=== PATIENT | female | born 1955 | race Caucasian/White ===

== ENCOUNTER 2018-05-18 19:08 | Emergency (ER) | payer MEDICARE, MEDICAID ==
[~2018-05-18] VITALS: Ht 157.5 cm; Wt 118.7 kg
[2018-05-18] MEDS ORDERED: GABA600T7 PO (19:34)
[2018-05-18] MEDS ORDERED: FURO-93 PO (19:34)
[2018-05-18] MEDS ORDERED: LOSA100T14 PO (19:34)
[2018-05-18] MEDS ORDERED: PANT40TA5 PO (19:34)
[2018-05-18] MEDS ORDERED: AMIT150T PO (19:34)
[2018-05-18] MEDS ORDERED: METO25TA91 PO (19:34)
[2018-05-18] MEDS ORDERED: ATOR40TA PO (19:34)
[2018-05-18] MEDS ORDERED: LEVO150T5 PO (19:34)
[2018-05-18] MEDS ORDERED: SERT50TA28 PO (19:34)
--- NOTE | 2018-05-18 19:37 | NUR ---
PT IN ROOM. ALL ASSESSMENT AND MED REC COMPLETED BY JOHN ESCALANTE.
[2018-05-18] MEDS ORDERED: ONDANSETRON 2MG/ML, 2ML IVPush ONE (20:00)
[2018-05-18] MEDS ORDERED: MORPHINE SULFATE 4 MG/ML, 1ML IVPush PRN (20:00)
[2018-05-18] MEDS ORDERED: ONDANSETRON 2MG/ML, 2ML ONE (20:22)
[2018-05-18] MEDS ORDERED: MORPHINE SULFATE 4 MG/ML, 1ML ONE (20:23)
[2018-05-18 20:24] LABS: BASOPHILS # (AUTO) 0.03 x10^3/uL (0-0.1); BASOPHILS % (AUTO) 0 % (0-1); EOSINOPHILS # (AUTO) 0.41 x10^3/uL (0-0.4); EOSINOPHILS % (AUTO) 4 % (1-7); LYMPHOCYTES # (AUTO) 1.61 x10^3/uL (1-3.4); LYMPHOCYTES % (AUTO) 15 % (22-44); MD NO; MEAN CORPUSCULAR HEMOGLOBIN 27.1 pg (27.0-34.8); MEAN CORPUSCULAR HGB CONC 32.1 g/dL (32.4-35.8); MEAN CORPUSCULAR VOLUME 84.5 fL (80-100); MEAN PLATELET VOLUME 9.6 fL (7.4-10.4); MONOCYTES # (AUTO) 0.47 x10^3/uL (0.2-0.8); MONOCYTES % (AUTO) 4 % (2-9); NEUTROPHILS # (AUTO) 8.28 x10^3/uL (1.8-6.8); NEUTROPHILS % (AUTO) 77 % (42-75); PLATELET COUNT 327 x10^3/uL (130-400); RED CELL DISTRIBUTION WIDTH 16.5 % (9.6-15.2)
[2018-05-18 20:33] LABS: ALBUMIN 3.1 g/dL (3.4-5.0); ANION GAP 7 mmol/L (5-15); CALCIUM 10.7 mg/dL (8.5-10.1); CHLORIDE 100 mmol/L (98-107)
--- NOTE | 2018-05-18 20:33 | NUR ---
CT PENDING LAB/CREATINE.
[2018-05-18 20:36] LABS: MICROSCOPIC AUTO
[2018-05-18 20:39] LABS: ALANINE AMINOTRANSFERASE 21 U/L (12-78); ALKALINE PHOSPHATASE 149 U/L (45-117); BILIRUBIN,TOTAL 0.6 mg/dL (0.2-1.0); CREATININE 1.45 mg/dL (0.55-1.02); TOTAL PROTEIN 7.6 g/dL (6.4-8.2); TROPONIN I < 0.015 ng/mL (0.000-0.045)
[2018-05-18 20:46] LABS: CULTURE INDICATED? YES
--- NOTE | 2018-05-18 20:58 | NUR ---
PT IN CT NOW
--- NOTE | 2018-05-18 21:30 | NUR ---
PT IN CT. DELIVERY RECRUITER DIFFICULTY WITH IV AND STARTING NEW IV. TEENA ESCALANTE TO CT WITH US MACHINE FOR IV PLACEMENT.
--- NOTE | 2018-05-18 22:00 | NUR ---
pt back from CT. report received from AVA Muhammad at bedside. pt a&o, resps even and unlabored. awaiting CTA results and dispo at this time.
--- NOTE | 2018-05-18 22:07 | NUR ---
pt reattached to all monitors, pt is sinus tach rate 90s on choker setter with no ectopy. pt reports chest pain level is now 7/10, which she states is improved since morphine admin. pt requests RN to call and give update, chaz Harry called (phone [phone]) and given update with POC. Addendum: 05/18/18 at 2239 by MADISON pt reattached to all monitors, pt is sinus tach rate 90s on choker setter with no ectopy. pt reports rt shoulder/back pain level is now 7/10, which she states is improved since morphine admin. pt requests RN to call and give update, chaz Harry called (phone [phone]) and given update with POC.
[2018-05-18] MEDS ORDERED: OMNIPAQUE 350 MG/ML, 100ML BOTTLE ONE (22:10)
[2018-05-18 22:37] VITALS: BP 147/62
--- NOTE | 2018-05-18 23:08 | NUR ---
Pt given dc instructions and script, pt educated regarding flexiril rx. pt uses wheelchair at home, able to transfer easily from bed to WC. pt states that when she arrives home, will meet her at cab and transfer from cab to own WC. pt's called at pt request to notify of dc and that pt is coming home via cab. pt is a&o, resps even and unlabored. piv dc'd with tip intact. pt wheeled to dc in WC. nadn at ca. Addendum: 05/18/18 at 2312 by MADISON Pt given dc instructions and script, pt educated regarding flexiril rx. pt uses wheelchair at home, able to transfer easily from bed to WC. pt states that when she arrives home, will meet her at cab and transfer from cab to own WC. pt's called at pt request to notify of dc and that pt is coming home via cab. pt is a&o, resps even and unlabored. pt only had one PIV in place at time of dc, located in left AC region. PIV dc'd with tip intact. pt wheeled to dc in WC. nadn at ca.
== END 2018-05-18 23:09 | disposition home or self-care (01) ==
LOC: ED 22:05
DX: M54.6 Pain in thoracic spine (principal); M25.511 Pain in right shoulder; I10 Essential (primary) hypertension; E11.9 Type 2 diabetes mellitus without complications
CPT/HCPCS: 36415; 71275; 80053; 81001; 83690; 84484; 85025; 87086; 93005; 96374; 96375; 99284; J2405; Q9967